=== PATIENT | male | born 1960 | race Caucasian/White ===

== ENCOUNTER 2017-11-19 10:52 | Emergency (ER) | payer BC ==
[~2017-11-19] VITALS: Ht 177.8 cm; Wt 81.2 kg
[2017-11-19 10:57] VITALS: PULSE 66; TEMP 36.4; O2SAT 100; Ht 177.8 cm; Wt 81.2 kg
[2017-11-19] MEDS ORDERED: CLR10 PO (11:17)
[2017-11-19] MEDS ORDERED: NAPR1TAB9 PO (11:17)
[2017-11-19] MEDS ORDERED: KETOROLAC TROMETHAMINE 60 MG/2 ML VIAL IM STA (11:54)
--- NOTE | 2017-11-19 12:41 | DIAGNOSTIC IMAGING REPORT ---
L-SPINE MIN 4 VIEWS ROUTINE CLINICAL HISTORY: Low back pain. History of disc herniation. COMPARISON STUDY: No previous studies for comparison. FINDINGS: There is no evidence of pathologic bowel dilatation. There is mild to moderate stool within the right colon. No acute fractures or subluxations are visualized. No destructive lesions are evident on conventional radiographic imaging. The disc space heights are relatively well preserved for age. IMPRESSION: 1. No fractures or subluxations identified 2. No destructive lesions are visualized on conventional radiographic imaging Electronically signed by: Min Nicholson M.D. 11/19/2017 12:39 PM Dictated Date/Time: 11/19/2017 12:39 PM
--- NOTE | 2017-11-19 12:48 | EMERGENCY ROOM VISIT NOTE ---
ED Visit Note First contact with patient: 11:25 CHIEF COMPLAINT: Low back pain HISTORY OF PRESENT ILLNESS: This is a 57-year-old male presents to the emergency department with complaint of left low back pain that started yesterday. He states he was doing some heavy lifting of boxes yesterday when he got a slight twinge in his lower back, this has become progressively worse, and kept him awake during the night due to pain. He reports the pain is now steady and constant, worse with movement, better with rest, slightly improved with Aleve, 08/09. He reports a similar episode of low back pain 15 years ago and had been diagnosed with a herniated disc that he reports improved with physical therapy and muscle relaxers. He denies any numbness/tingling or weakness of the legs, saddle paresthesias, radiation of the pain down the buttock or legs, bowel or bladder dysfunction. No recent falls or direct trauma to the back. He denies any chest pain, shortness of breath, abdominal pain, nausea/vomiting, diarrhea, or urinary symptoms. REVIEW OF SYSTEMS: A complete 10 point review of systems was reviewed with the patient with pertinent positives and negatives as per history of present illness. All else were negative. PMH: The patient is healthy; there is no significant medical or surgical history. SOCIAL HISTORY: Patient lives at home. He is a current every day smoker, one pack per day. He denies alcohol and recreational drugs. PHYSICAL EXAM: Vital Signs: Reviewed Nurse's notes. VITAL SIGNS - Vital signs and nursing notes were reviewed. GENERAL -Pleasant and cooperative, no acute distress but in noticeable discomfort throughout the exam. NECK - FROM of the cervical spine. No midline tenderness to palpation ABDOMEN - Abdominal contour normal without pulsations or visible masses. BS normoactive all four quadrants. No tenderness, palpable masses, hepatosplenomegaly, or ascites noted. MUSCULOSKELETAL - ROM of the lumbar spine region was somewhat limited due to pain. Pt was unwilling to lie flat on the exam table. Pt made slow movements when asked to change position. There are no step-off deformities palpated down the thoracic and lumbar spines. Tenderness to Palpation experienced at the level of the L1-L3 lumbar spine area in the left paraspinous muscles with moderate spasm noted, reproduces complaint. NEUROLOGIC - REFLEXES: + 2 patellar reflexes B/L, + 2 Achilles reflexes B/L. SENSORY: No sensory defects of the upper or lower extremities were appreciated utilizing light touch for evaluation. CEREBELLAR: Pt able to perform rapid alternating movements of the feet. EXTREMITIES - Range of Motion - No tremors, ticks, or fasciculations of the lower extremities noticed during inspection. FROM of the lower extremities. No clonus noted with PROM of the lower extremities bilaterally. Pt able to perform straight leg raises B/L, with increase in low back pain. Pt had +5/5 strength appreciated bilaterally in the lower extremities against examiner's resistance. VASCULAR - Capillary refill of the great toe was brisk. No mottling or blanching of the extremities present. +2 dorsalis pedis pulses palpated bilaterally. IMAGING: L-SPINE MIN 4 VIEWS ROUTINE CLINICAL HISTORY: Low back pain. History of disc herniation. COMPARISON STUDY: No previous studies for comparison. FINDINGS: There is no evidence of pathologic bowel dilatation. There is mild to moderate stool within the right colon. No acute fractures or subluxations are visualized. No destructive lesions are evident on conventional radiographic imaging. The disc space heights are relatively well preserved for age. IMPRESSION: 1. No fractures or subluxations identified 2. No destructive lesions are visualized on conventional radiographic imaging EMERGENCY DEPARTMENT COURSE: I examined the patient. Differential diagnosis includes lumbosacral strain/sprain/musculoskeletal pain/spasm, sciatica, lumbar radiculopathy, herniated disc, lumbar fracture, subluxation, among others. Imaging of the lumbar spine is unremarkable. I suspect musculoskeletal strain. Patient with good improvement after IM Toradol. Prescription for Valium and naproxen sent to pharmacy. Patient was educated on use of anti-inflammatories and muscle relaxers to treat his pain, as well as encouraged to reinstate physical therapy for his back pain through his PCP. He was also given strict return precautions should his symptoms progress or worsen, he verbalized understanding. Patient was discharged home in stable condition and ambulatory. Medication Reconciliation: I attest that I have personally reviewed the patient' s current medication list. Blood pressure screening: The patient was found to have normal blood pressure on screening and does not require follow-up for repeat blood pressure check. Current/Historical Medications Scheduled Naproxen (Aleve), 220 MG PO UD Naproxen (Naproxen), 1 TAB PO BID Scheduled PRN Diazepam (Valium), 1 TAB PO TID PRN for Muscle Spasms Loratadine (Claritin), 10 MG PO DAILY PRN for Allergic Reaction Allergies Uncoded Allergies: NONE (Adverse Reaction, Unknown, 08/29/03) Vital Signs Date Time Temp Pulse Resp B/P (MAP) Pulse Ox O2 Delivery O2 Flow Rate FiO2 11/19/17 13:09 118/72 11/19/17 10:57 36.4 66 16 137/78 100 Room Air Medications Administered Medications (Trade) Dose Ordered Sig/Mari Route Start Time Stop Time Status Last Admin Dose Admin Ketorolac Tromethamine (Toradol Inj) 60 mg NOW STAT IM 11/19/17 11:54 11/19/17 11:56 DC 11/19/17 12:02 60 MG Departure Information Impression Primary Impression: Lumbar strain Dispostion Home / Self-Care Condition GOOD Prescriptions Diazepam (VALIUM) 10 Mg Tab 1 TAB PO TID Y for Muscle Spasms for 5 Days, #15 TAB Prov: Sherry Gray, [employer] 11/19/17 Naproxen (NAPROXEN) 500 Mg Tab 1 TAB PO BID for 14 Days, #28 TAB Prov: Sherry Gray [employer] 11/19/17 Referrals No Doctor, Assigned (PCP) Patient Instructions ED Back Care Tips, ED Exercises Lumbar Muscles, ED Sprain Strain Lumbar, [facility] Additional Instructions Take it easy for the next few days, no strenuous activity, heavy lifting, or bending/twisting motions, to allow your back to rest. Alternate heat and ice for comfort. After heat, you may do gentle stretching and massage to the low back. Naproxen as prescribed twice a day for the next two weeks to treat your pain and inflammation in your back. Do not take other NSAIDs while you are taking this medication. Valium (muscle relaxer) take as prescribed, every 8 hours as needed for muscle tightness and spasms. This may make you drowsy. Do not drive or drink alcohol while taking. Follow up with your PCP in the next few days for further management. You may benefit from physical therapy. Please return to the ER if any problems with bowel or bladder function, numbness in your groin, high fevers, severe abdominal pain or worsening back pain, or if loss of feeling/movement of legs. Work Instructions Return To Work: 2 days Problem Qualifiers Primary Impression: Lumbar strain Encounter type: initial encounter Qualified Codes: S39.012A - Strain of muscle, fascia and tendon of lower back, initial encounter
[2017-11-19] MEDS ORDERED: NAPR500T3 PO (12:59)
[2017-11-19] MEDS ORDERED: DIAZ10TA3 PO (12:59)
[2017-11-19 13:09] VITALS: BP 118/72
== END 2017-11-19 13:10 | disposition home or self-care (01) ==
LOC: C.EDB 10:53 → C.EDD 13:10
DX: S39.012A Strain of muscle, fascia and tendon of lower back, initial encounter (principal); X58.XXXA Exposure to other specified factors, initial encounter